=== PATIENT | female | born 1985 | race African-American/Black ===

== ENCOUNTER → 2017-02-03 11:25 | Outpatient (CLI) | payer MEDICAID | END | disposition home or self-care (01) | LOC: D.LDO 11:25 | DX: O36.5930 Maternal care for other known or suspected poor fetal growth, third trimester, not applicable or unspecified (principal); Z3A.35 35 weeks gestation of pregnancy ==

== ENCOUNTER → 2017-02-06 11:42 | Outpatient (CLI) | payer MEDICAID | END | disposition home or self-care (01) | LOC: D.LDO 11:42 | DX: O36.5930 Maternal care for other known or suspected poor fetal growth, third trimester, not applicable or unspecified (principal); Z3A.36 36 weeks gestation of pregnancy ==

== ENCOUNTER 2017-02-10 11:30 | Inpatient (IN) | payer MEDICAID ==
[~2017-02-10] VITALS: Ht 162.6 cm; Wt 65.8 kg
[2017-02-10] MEDS ORDERED: PRENATAL COMPLE1 TAB PO (14:44)
[2017-02-10] MEDS ORDERED: PROTONIX40 MG PO (14:45)
[2017-02-10] MEDS ORDERED: FLAGYL250 MG PO (14:46)
[2017-02-10 15:02] LABS: BASOPHILS 0.2 % (0-2); EOSINOPHILS 1.6 % (0-7); HEMATOCRIT 38.7 % (36.0-48.0); HEMOGLOBIN 13.2 g/dL (12-16); IMMATURE GRANULOCYTES 0.8 % (0-5); LYMPHOCYTES 22.7 % (15-50); MCH 34.5 pg (26.0-34.0); MCHC 34.1 g/dL (31.0-37.0); MEAN PLATELET VOLUME 11.2 fL (7.4-10.4); MONOCYTES 9.8 % (2-11); NEUTROPHILS 64.9 % (40-80); PLATELET COUNT 222 10x3/uL (130-400); RBC 3.83 10x6/uL (4.00-5.40); RDW 13.5 % (11.5-14.5); WBC 11.1 10x3/uL (4.8-10.8)
[2017-02-10 15:57] VITALS: BP 124/65; Ht 162.6 cm; Wt 65.8 kg
[2017-02-10 20:34] LABS: UDS - AMPHET NEGATIVE QUAL (NEGATIVE); UDS - BARB NEGATIVE QUAL (NEGATIVE); UDS - BENZO NEGATIVE QUAL (NEGATIVE); UDS - COCAINE NEGATIVE QUAL (NEGATIVE); UDS - METH NEGATIVE QUAL (NEGATIVE); UDS - OPIATE NEGATIVE QUAL (NEGATIVE); UDS - PCP NEGATIVE QUAL (NEGATIVE); UDS - THC POSITIVE QUAL (NEGATIVE)
[2017-02-11] VITALS (10 sets, daily range): BP systolic 123–139; BP diastolic 61–79
--- NOTE | 2017-02-11 20:14 | NUR ---
FUNDUS FIRM AT UBMILICUS K[facility] MINIMAL LOCIA
--- NOTE | 2017-02-11 20:19 | NUR ---
PT ARRIVES TO ROOM 1278 WITH Rosmery VILLALBA RN. PT RESTING IN BED IN SEMI-FOWLERS POSITION WITH EYES CLOSED IN NO ACUTE DISTRESS. PT AWAKENS EASILY WHEN SPOKEN TO. PITOCIN SET TO INFUSE VIA PUMP AT 125CC/HR TO EXISTING 18G IV IN RIGHT HAND, NO REDNESS OR EDEMA NOTED TO SITE. RN REMAINS AT PT BS TO PERFORM INTERVENTIONS AND FOR COLIN.
--- NOTE | 2017-02-11 20:29 | NUR ---
DEMEROL STRETCHER DRIER OPERATOR STARTED. SETTINGS REVIEWED
--- NOTE | 2017-02-11 20:32 | NUR ---
400ML CLEAR YELLOW URINE EMPTIED FROM SUAREZ
--- NOTE | 2017-02-11 20:36 | NUR ---
FABY CARE PERFORMED. FUNDUS FIRM AND ML @ U/-3. LOCHIA RUBRA SCANT. FABY PAD CHANGED. ICE PACK PLACED TO ABDOMEN.
--- NOTE | 2017-02-11 21:05 | NUR ---
PT POSITIONED TO RIGHT LATERAL POSITION FOR PT COMFORT. INSTRUCTIONS OF PERSONNEL CLERKS SUPERVISOR REVIEWED WITH PT AND FAMILY AT BS. PT VERBALIZED UNDERSTANDING.
--- NOTE | 2017-02-11 21:19 | NUR ---
COLIN COMPLETE. PT LETHARGIC BUT AWAKENS EASILY WHEN SPOKEN TO. ORIENTED TIMES 3. HR REGULAR. LUNGS CTAB. PT ABLE TO TAKE DEEP BREATHES ON OWN. ABDOMEN SOFT AND TENDER WITH PALPATION. BS HYPOACTIVE TIMES 4. FUNDUS FIRM AND ML @ U/-3. LOCHIA RUBRA SCANT. LOWER ABDOMINAL INCISION NOTED. STERI STRIPS IN PLACE. NO REDNESS, EDEMA, OR DRAINAGE NOTED TO SITE. PT DENIES PASSING GAS SINCE PRIMARY C/S. SUAREZ IN PLACE AND DRAINING CLEAR YELLOW URINE. OUTPUT WNL. SCD'S IN PLACE TO LOWER EXTREMITIES AND PUMPING. NS WITH 20 UNITS PITOCIN INFUSING VIA PUMP AT 125CC/HR AND DEMEROL HVAC/R SERVICE TECHNICIAN INFUSING TO EXISTING 18G IN RIGHT HAND, NO REDNESS OR EDEMA NOTED TO SITE. ICE PACK IN PLACE TO PERINIUM. PT DENIES ANY NEEDS AT THIS TIME. BED IN LOW POSITION, SIDE RAILS UP TIMES 2, CALL LIGHT AND PHONE IN REACH. FAMILY TIMES 1 REMAINS AT PT BS FOR SUPPORT AND ASSISTANCE. WILL CONT TO MONITOR PT STATUS.
--- NOTE | 2017-02-11 21:40 | NUR ---
RN CALLED TO PT BS. PT REPOSITIONED IN BED TO LEFT TILT FOR PT COMFORT. PT TOLERATING WATER PO. INSTRUCTIONS REVIEWED AGAIN WITH PT AND FAMILY REGARDING PER DIEM NURSE. PT DENIES ANY FURTHER NEEDS. WILL CONT TO MONITOR.
--- NOTE | 2017-02-11 22:55 | NUR ---
RN TO PT BS. PT RESTING IN BED IN LEFT TILT POSITION, WITH EYES CLOSED, IN NO ACUTE DISTRESS. RESPIRATIONS EVEN AND UNLABORED. PT AWAKENS EASILY WHEN SPOKEN TO. I&OS PERFORMED. VS WNL. FUNDUS FIRM AND ML @ U/-3. LOCHIA RUBRA SMALL. FABY CARE PERFORMED AND FABY PAD CHANGED. PT DENIES ANY NEEDS AT THIS TIME. BED IN LOW POSITION, SIDE RAILS UP TIMES 2, CALL LIGHT AND PHONE IN REACH. FAMILY TIMES 1 REMAINS AT PT BS FOR SUPPORT AND ASSISTANCE. WILL CONT TO MONITOR PT STATUS.
--- NOTE | 2017-02-11 23:05 | NUR ---
NURSERY RN AT PT BS WITH .
--- NOTE | 2017-02-11 23:53 | NUR ---
RN TO PT BS. PT RESTING IN BED IN SEMI-FOLWERS POSITION, WITH EYES CLOSED, IN NO ACUTE DISTRESS. PT AWAKENS EASILY WHEN SPOKEN TO. VS WNL. OUTPUT WNL. PT DENIES ANY NEEDS AT THIS TIME. BED IN LOW POSITION, SIDE RAILS UP TIMES 2, CALL LIGHT AND PHONE IN REACH. FAMILY AT PT BS TIMES 1 FOR SUPPORT AND ASSISTANCE. ICE PACK REFRESHED TO ABDOMEN. WILL CONT TO MONITOR PT STATUS.
[2017-02-12] VITALS (10 sets, daily range): BP systolic 118–132; BP diastolic 64–76
--- NOTE | 2017-02-12 00:10 | NUR ---
RN TO PT BS. PT REQUESTS BE BROUGHT TO ROOM. TRANSPORTED TO PT ROOM VIA OPEN CRIB PER PT REQUEST. ID BANDS VERIFIED TIMES 2. PT DENIES ANY FURTHER NEEDS.
--- NOTE | 2017-02-12 01:12 | NUR ---
RN TO PT BS. PT SITTING IN HIGH FOWLERS POSITION HOLDING INFANT. PT IN NO ACUTE DISTRESS. I&O'S WNL. VS WNL. PT DENIES ANY NEEDS AT THIS TIME. BED IN LOW POSITION, SIDE RAILS UP TIMES 2, CALL LIGHT AND PHONE IN REACH. FAMILY AT PT BS TIMES 2 FOR SUPPORT AND ASSISTANCE. REMAINS AT PT BS FOR COUPLET CARE. WILL CONT TO MONITOR PT STATUS.
--- NOTE | 2017-02-12 03:22 | NUR ---
RN TO PT BS. PT RESTING IN BED IN SEMI-FOWLERS POSITION, WITH EYES CLOSED, IN NO ACUTE DISTRESS. PT AWAKENS EASILY WHEN SPOKEN TO. VS WNL. I&O'S WNL. FABY CARE PERFORMED. BLUE CHUX AND FABY PAD CHANGED. PT DENIES ANY NEEDS AT THIS TIME. BED IN LOW POSITION, SIDE RAILS UP TIMES 2, CALL LIGHT AND PHONE IN REACH. FAMILY AT PT BS TIMES 1 FOR SUPPORT AND ASSISTANCE. WILL CONT TO MONITOR PT STATUS.
--- NOTE | 2017-02-12 05:06 | NUR ---
RN TO PT BS. PT RESTING IN BED IN SEMI-FOWLERS POSITION, WITH EYES CLOSED, IN NO ACUTE DISTRESS. RESPIRATIONS EVEN AND UNLABORED. BED IN LOW POSITION, SIDE RAILS UP TIMES 2, CALL LIGHT AND PHONE IN REACH. FAMILY AT PT BS TIMES 1 FOR SUPPORT AND ASSISTANCE. WILL CONT TO MONITOR PT STATUS.
[2017-02-12 05:54] LABS: HEMATOCRIT 36.5 % (36.0-48.0); HEMOGLOBIN 12.5 g/dL (12-16); MCH 33.6 pg (26.0-34.0); MCHC 34.2 g/dL (31.0-37.0); MCV 98.1 fL (80.0-100.0); MEAN PLATELET VOLUME 11.4 fL (7.4-10.4); RBC 3.72 10x6/uL (4.00-5.40); RDW 13.1 % (11.5-14.5); WBC 28.1 10x3/uL (4.8-10.8)
[2017-02-12 06:14] LABS: RAPID PLASMA REAGIN Non Reactive (Non Reactive)
--- NOTE | 2017-02-12 06:37 | NUR ---
RN TO PT BS. PT RESTING IN BED IN SEMI-FOWLERS POSITION, WITH EYES CLOSED, IN NO ACUTE DISTRESS. PT AWAKENS EASILY WHEN SPOKEN TO. I&O'S PERFORMED, WNL. FABY CARE PROVIDED, FUNDUS FIRM AND ML @ U/-3, LOCHIA RUBRA SMALL. FABY PAD AND BLUE PAD CHANGED. ICE PACK TO ABDOMEN REFRESHED. PT DENIES ANY NEEDS AT THIS TIME. BED IN LOW POSITION, SIDE RAILS UP TIMES 2, CALL LIGHT AND PHONE IN REACH. FAMILY REMAINS AT PT BS TIMES 1 FOR SUPPORT AND ASSISTANCE. WILL CONT TO MONITOR PT STATUS AND GIVE REPORT TO AM SHIFT.
--- NOTE | 2017-02-12 07:31 | OP ---
PATIENT NAME: KEVIN MIXON MEDICAL RECORD: [id number] :85 LOCATION:[id number] ADMISSION DATE:02/10/17 SURGEON: AMINAH DOWNING MD DATE OF OPERATION: 02/11/2017 PREOPERATIVE DIAGNOSIS: Failure to progress. POSTOPERATIVE DIAGNOSIS: Failure to progress. PROCEDURE: Primary low transverse section. ANESTHESIA: Epidural. SURGEON: Aminah Downing MD. FINDINGS: A 5 pound 6 ounce female infant in cephalic presentation with clear fluid, 9 and 9 Apgars. ESTIMATED BLOOD LOSS: 800 cc. COMPLICATIONS OF SURGERY: None. OPERATIVE NOTE: The patient was taken to the OR and after adequate epidural anesthesia, prepped and draped in the usual manner for abdominal procedures. A transverse incision was made in the lower abdomen and extended through subcutaneous tissue and fascia, dividing muscles in the midline in the Pfannenstiel manner. The peritoneum was then incised, avoiding the bladder and abdominal organs. A transverse incision was then made in the lower uterine segment and was delivered through the uteroabdominal incision without difficulty. was thoroughly suctioned, cord doubly clamped and ligated and the infant handed to the waiting nursery personnel. Placenta was removed manually. The uterus was closed in two layers, first layer with running interlocking #1 chromic suture, second layer an imbricating #1 chromic suture. Pelvis and abdomen were then copiously irrigated with lactated Ringer's solution and suctioned and hemostasis again confirmed. The fascial layer was closed in a running noninterlocking #1 PDS loop suture. The skin was reapproximated with a 2-0 plain gut subcuticular suture. Dermabond was applied, a Steri-Strip dressing applied and the patient went to the recovery area in good condition. TRANSINT:[id number] Voice Confirmation ID: [id number] DOCUMENT ID: [id number] AMINAH DOWNING MD at 0731 CC: [id number] DICTATION DATE: 02/11/171957 SALES MANAGEMENT INTERN: 02/12/17 0234 ADM IN [id number] [place] [address]
--- NOTE | 2017-02-12 07:40 | NUR ---
ASSUMED CARE OF THIS PATIENT. ALERT AND ORIENTED. TYPING ON CELL PHONE. SHIFT ASSESSMENT COMPLETED. U/2 FIRM RUBRA SMALL, CLEAN FABY-PADS X 2 ON, IV PATENT NS WITH 20 U PITOCIN INFUSING AT 125 ML/HR PER ALARIS PUMP. DEMEROL CANDY CUTTER MACHINE CONTROLLER IN REACH. PT C/O 05/11 ABDOMINAL CRAMPING. ENCOURAGED TO USE CANDY CUTTER MACHINE PRN. INSTRUCTED ON PURPOSE OF CRAMPING IN CONTROLLING BLEEDING. ALSO DISCUSSED THAT PAIN WILL IMPROVE. ANTICIPATED DC OF IV FLUIDS, SUAREZ, AMBULATIONS, SHOWER TODAY. WAITING ON MD ORDERS. SIDE RAILS UP X 2, CALL LIGHT IN REACH. FAMILY AT BEDSIDE. IN NURSERY.
--- NOTE | 2017-02-12 07:45 | NUR ---
DR DOWNING ON L&D VERBAL ORDERS RECEIVED.
--- NOTE | 2017-02-12 07:55 | NUR ---
IV FLUIDS AND VACUUM PAN OPERATOR DC'D. THREE PORTS FLUSHED WITH NS, CLAMPLED AND COVERED WITH ALCOHOL CAPS. SUAREZ DC'D WITH 275 ML IN BACK. INSTRUCTED PATIENT ON EXPECTATIONS TO BE ABLE TO VOID WITHIN 4 HOURS. TO CALL IF NEEDING TO VOID. VERBALIZED UNDERSTANDING. SIDE RAILS UP X 2. CALL LIGHT IN REACH.
--- NOTE | 2017-02-12 07:59 | NUR ---
DEMEROL 100 MG GIVEN PO FOR RELIEF OF CONTINUED 9/10 ABDOMINAL CRAMPING. SIDE RAILS UP X 2, CALL LIGHT IN REACH.
--- NOTE | 2017-02-12 09:25 | NUR ---
RETURNED TO BED AFTER ATTEMPTING TO VOID IN BATHROOM. WAS ASSISTED TO BR BY Edi CID RN AND FAMILY MEMBER. CURRENTLY PUMPING BREAST AND FALLING ASLEEP. ASKED PT REGARDING PAIN SCALE SAYS SHE IS NOW 7/10 CRAMPING. PLANS TO TAKE A NAP, SHOWER LATER AND THEN PUMP AGAIN. DISCUSSED PUMPING VS ACTUALLY IN EARLY POST PERIOD WITH PT AND FAMILY. INFANT IN CRIB IN ROOM. SIDE RAILS UP X 2, CALL LIGHT IN REACH. SCDS IN PLACE. TO CALL WHEN READY TO GET UP TO BATHROOM OR SHOWER.
--- NOTE | 2017-02-12 10:18 | NUR ---
SITTING IN SEMI FOWLERS POSITION HOLDING IN ARMS AND TYPING ON CELL PHONE. NO REQUESTS AT PRESENT. LIGHTS ON LOW. SIDE RAILS UP X 2 CALL LIGHT IN REACH. VISITOR SLEEPING ON COUCH.
--- NOTE | 2017-02-12 11:01 | NUR ---
SITTING UP IN BED. GETTING READY TO BREASTFEED INFANT. FAMILY MEMBER ASSISTING PATIENT AT THIS TIME. DENIES URGE TO VOID. INSTRUCTED WILL NEED TO TRY AGAIN SOON, AFTER BREAST FEEDING.
--- NOTE | 2017-02-12 11:45 | NUR ---
ASSISTED UP TO BATHROOM TO ATTEMPT TO VOID. TRIED WARM WATER AND RUNNING TAP. STATES "I DON'T FEEL LIKE I HAVE TO GO". WILL SHOWER AT THIS TIME.
--- NOTE | 2017-02-12 12:40 | NUR ---
COMPLETED SHOWER. ASSISTED WITH GETTING DRESSED. SITTING UP IN CHAIR FOR LUNCH. REQUESTED SALAD INSTEAD OF MEAL TRAY THAT WAS SERVED. INFANT IN NURSERY. VISITOR IN ROOM.
--- NOTE | 2017-02-12 12:49 | NUR ---
DEMEROL 100 MG GIVEN PO FOR RELIEF OF 8/10 CRAMPING. GEMINI CÁRDENAS. WAS UNABLE TO VOID IN SHOWER, STATES "I STILL DON'T FEEL LIKE I HAVE TO GO".
--- NOTE | 2017-02-12 13:10 | NUR ---
RETURNED FROM BATHROOM WITH HELP FROM VISITOR. VOIDED 850 ML OF URINE. NOW SITTING IN BED GETTING READY TO EAT LUNCH. SIDE RAILS UP X 2, CALL LIGHT IN REACH. IN NURSERY.
--- NOTE | 2017-02-12 13:31 | NUR ---
EATING LUNCH. SAYS HER PAIN IS NOW 6/10 "STARTING TO GET BETTER". NO REQUESTS AT THIS TIME. VISITOR IN ROOM.
--- NOTE | 2017-02-12 14:12 | NUR ---
SITTING UP IN BED WITH IN ARMS. C/O SALINE LOCK ITCHING AND "LOOKS LIKE BLOOD". SLIGHT BLOOD NOTED UNDER OP SITE. WILL DC AT THIS TIME DUE TO COMPLAINTS. PT INFORMED MAY HAVE TO BE RESTARTED IF INDICATED OR ORDERED. VERBALIZED UNDERSTANDING. INSTRUCTED THAT SHE WILL NEED TO AMBULATE IN [place] TWO TIMES TODAY. TO CALL WHEN READY TO WALK IN [place]. VERBALIZED UNDERSTANDING. CALL LIGHT IN REACH.
--- NOTE | 2017-02-12 16:10 | NUR ---
UP TO BR TO VOID. VOIDED 700 ML URINE. RUBRA SCANT. AMBULATED IN [place] AROUND ENTIRE L&D. TOLERATED WELL STATES "THIS IS EASIER THAN I THOUGHT IT WOULD BE." RETURNED TO ROOM AND BED. VISITOR IN ROOM WITH . REQUESTS SOMETHING FOR PAIN AT THIS TIME.
--- NOTE | 2017-02-12 16:11 | NUR ---
02/12/2017 15:55 CM: Case Management Case Management Referral Baby's Full Name: Agnes Snowden Mother's Name: Mery Mcclelland [phone] CM met with mother of baby. She reports she lives with a room mate and her room mates 2 children, ages & 11 @ [address] [facility]. She states this is her first child. She states she is unsure of who is baby's father - 1 of two men. She reports a college education. She did not attend any parenting classes, but states she rec'd care. At mi, she plans to return home with her room mate, but hopes to move to [place] with her mother in a month or two. She states her home is a safe environment with basic utilities including city water, heat, & air. She states she has a car seat for baby. She states she has applied for WIC and [facility] for baby. She hopes to breastfeed but will supplement with formula if needed. She states she has diapers, clothing, bottles, & crib for baby. She plans for baby to follow up with engraver seals, Dr. Kwong after discharge. CM discussed positive UDS with Mom. She reports smoking THC approximately 2 weeks prior to hospitalization. She states she was stressed out and unable to eat so she smoked it to see if it would help. CPS has been notified by nursing of positive screen per [employer]. CM will follow and assist with any discharge needs.
--- NOTE | 2017-02-12 16:25 | NUR ---
DEMEROL 50 MG GIVEN PO FOR RELIEF OF 7/10 INCISIONAL PAIN AND CRAMPING. REQUESTED "HALF DOSE". NO ADDITIONAL REQUESTS AT THIS TIME. INFANT IN ROOM. VISITOR IN ROOM. SIDE RAILS UP X 2, CALL LIGHT IN REACH.
--- NOTE | 2017-02-12 17:07 | NUR ---
SITTING UP IN BED . VISITOR AT BEDSIDE. SAYS HER PAIN IS BETTER, NOW 5/10. FEELING DROWSY. SIDE RAILS UP X 2, CALL LIGHT IN REACH. SAYS SHE WAS UP TO BATHROOM CAUSE SHE FELT LIKE SHE HAD TO HAVE A BM. HAS BEEN PASSING GAS. ENCOURAGED AMBULATION AND WARM FLUIDS TO PROMOTE HAVING A BM. VERBALIZED UNDERSTANDING.
--- NOTE | 2017-02-12 17:31 | NUR ---
HOLDING IN ARMS. U/2 FIRM MIDLINE. GEMINI CÁRDENAS. VISITOR IN ROOM. NO REQUESTS AT THIS TIME. SIDE RAILS UP X 2, CALL LIGHT IN REACH. TO CALL IF ANYTHING IS NEEDED.
--- NOTE | 2017-02-12 18:30 | NUR ---
WAS ASSISTED UP TO BATHROOM TO VOID. VOIDED 450 ML URINE. RETURNED TO BED WITH ASSISTANCE, FEELS DROWSY FOLLOWING PAIN MEDICATION. SIDE RAILS UP X2, CALL LIGHT IN REACH. IN NURSERY AT THIS TIME. TO CALL IF ANYTHING IS NEEDED. WILL NEED SCD'S WHEN READY TO SLEEP FOR THE NIGHT.
--- NOTE | 2017-02-12 20:30 | NUR ---
PT. UP TO BATHROOM AT PRESENT. LADY AT BEDSIDE HOLDING UNWRAPPED. STATES SHE IS TRYING TO WAKE HER UP TO BREASTFEED. INFORMED LADY THAT REALLY NEEDS TO STAY WRAPPED UP DUE TO LOW WEIGHT. INSTRUCTED HER ON OTHER TECHNIQUES THAT SHE MIGHT TRY SUCH RUBBING SOLES OF FEET BUT TO KEEP INFANT WRAPPED. LADY STATES, "HER MOTHER WAS THE SAME WAY". NBN STAFF INFORMED OF CONVERSATION AND FACT THAT ROOM TEMP. WAS COLD.
--- NOTE | 2017-02-12 20:35 | NUR ---
BACK FROM THE BATHROOM. RATES PAIN A 6 OF 10 ON PAIN SCALE. ABD. INCISION NOTED WITH STERI STRIPS WHICH ARE CLEAN AND DRY. SLIGHT INSPIRATORY WHEEZE WHICH CLEARS WITH COUGHING. DENIES ANY PAIN IN LEGS AND NO REDNESS NOR EDEMA NOTED. SCDS OFF AT PRSENT. ENCOURAGED TO COUGH AND DEEP BREATH. PT. GAVE RETURN DEMONSTRATION. BOWEL SOUNDS AUDIBLE AND PT. REPORTS PASSING FLATUS. BABY IN ROOM AWAITING .
--- NOTE | 2017-02-12 20:42 | NUR ---
DEMEROL 50 PO GIVEN ORDERED. LYING IN BED ON BACK WITH HOB AT 45 DEGREES.
--- NOTE | 2017-02-12 20:45 | NUR ---
NBN STAFF IN ROOM TO ASSIST PT. WITH GETTING TO LATCH.
--- NOTE | 2017-02-12 21:50 | NUR ---
INTO PT. ROOM AND SHE REPORTS THAT SHE HAS SOME CRAMPING UNDER INCISION. PT. POST . INFORMED OF REASON FOR CRAMPING DURING AND FOR SOME TIME POST . PT. STATES UNDERSTANDING. WARM BLANKET GIVEN TO PT. TO PLACE AGAINST LOWER ABD. PT'S AUNT IN ROOM WITH PT.
--- NOTE | 2017-02-12 23:05 | NUR ---
PT. LYING IN LT TILT. EYES CLOSED BUT LOOKS TOWARD DOOR THIS NURSE ENTERS ROOM. PT. REPORTS THAT SHE IS STILL HAVING ABD. DISCOMFORT. STATES SHE FEELS "LIKE A KNOT". ABD PALPATED AND ABD. SOFT BUT DISTENDED. EPPERSON PT. DESCRIBES IS BOWEL. EXPLAINED TO PT. THAT SHE HAS GAS. EXPLAINED THAT WALKING CAN HELP RELIEVE SOME OF THE DISCOMFORT AND ALSO PASSING GAS WHEN SHE FEELS THE URGE. PT. DECLINES THE OFFER TO AMBULATE AT THIS TIME. PT'S AUNT SLEEPING ON THE SOFA.
--- NOTE | 2017-02-12 23:11 | NUR ---
PT. INFORMED THAT MYLICON WAS ORDERED THAT COULD HELP WITH THE GAS. VITAL SIGNS OBTAINED. MYLICON ADMINISTERED ORDERED. INFORMED PT. THAT IF SHE DOES NOT GET RELIEF IN THE NEXT 30 - 45 MINUTES THIS NURSE WOULD BE HAPPY TO WALK WITH HER IN THE HALLWAY. PT. STATES UNDERSTANDING. OFFERED TO REPLACE SCDS BUT PT. DECLINED STATING THAT SHE DID NOT WANT THEM ON SINCE SHE WAS GETTING UP OFTEN TO THE BATHROOM. CALL LIGHT WITHIN REACH AND SIDE RAILS UP X 2.
--- NOTE | 2017-02-12 23:32 | NUR ---
PT. WALKED LENGTH OF HALLWAY AND BACK TO ROOM . USED WHEELCHAIR TO WALK BEHIND. THIS NURSE WALKED WITH PT.ALTHOUGH NO ASSISTANCE NEEDED. PT. INTO ROOM AND TO BATHROOM STATING THAT SHE FEELS SHE CAN PASS GAS. ENCOURAGED PT. TO WALK 3-4 TIMES TOMORROW. STATES SHE ALSO WALKED THIS AM.
--- NOTE | 2017-02-13 00:35 | NUR ---
PT. SITTING IN CHAIR AT BEDSIDE. STATES SHE FEELS BETTER AND ABD. IS LESS TENSE. DENIES ANY NEEDS AT THIS TIME. LOOKING ON PHONE AT THIS TIME.
--- NOTE | 2017-02-13 01:57 | NUR ---
LYING IN LT TILT WITH EYES CLOSED. RESPIRATIONS REGULAR.
[2017-02-13 03:36] VITALS: BP 137/77
--- NOTE | 2017-02-13 03:36 | NUR ---
SITTING ON SIDE OF BED. VITAL SIGNS OBTAINED. RATES PAIN A 7 OF 10 ON PAIN SCALE THAT IS CRAMPING AND INCISIONAL. PT UP TO BATHROOM.
--- NOTE | 2017-02-13 04:40 | NUR ---
PT. LYING ON BACK WITH HOB 30 DEGREE ON IPHONE. DENIES ANY PAIN AT THIS TIME.
--- NOTE | 2017-02-13 06:00 | NUR ---
LYING ON LT SIDE WITH HOB AT 30 DEGREES. RESPIRATIONS REGULAR.
--- NOTE | 2017-02-13 07:25 | NUR ---
THIS RN TO ROOM FOR SHIFT ASSESSMENT. PT LYING IN BED, SUPINE, HOB 60DEGREES. PT AAOx3. PT RATING PAIN 7/10 AT INCISION SITE, ALSO C/O GAS PAIN. SHIFT ASSESSMENT COMPLETE, VSS, SEE FLOWSHEET FOR DOC. BS HYPOACTIVE x4Q, ABD DISTENDED BUT SOFT. LOW TRANSVERSE INCISION WITH STERI STRIPS C/D/I. INCISION CARE DISCUSSED WITH PT, UNDERSTANDING VERBALIZED. PT DENIES CONCERNS WITH BLEEDING. HEAVY LOCHIA AND WHAT TO REPORT DISCUSSED WITH PT, UNDERSTANDING VERBALIZED. PT STATES SHE HAS PASSED GAS ONCE, DENIES HAVING BM SINCE SURGERY. PT ADMIN PRN DEMEROL AND SIMETHICONE ORDERED, SEE EMAR FOR DOC. PT DENIES FURTHER NEEDS. BREAKFAST TRAY SET UP FOR PT. SRUx2, CL IN REACH. WILL CONT TO MONITOR.
[2017-02-13 07:30] VITALS: BP 119/83
--- NOTE | 2017-02-13 07:55 | NUR ---
DR DOWNING ROUNDING ON PT, GIVES ORDER TO ADMIN DULCOLAX SUPPOSITORY NOW AND PT MAY D/C TO HOME WHEN SHE PASSES GAS. WILL PROCEED ORDERED.
--- NOTE | 2017-02-13 08:39 | NUR ---
PT ADMIN DULCOLAX SUPPOSITORY ORDERED. PT INSTRUCTED ON RESTING IN BED FOR APPROX 15MIN BEFORE AMBULATING. PT ALSO ENCOURAGED TO DRINK WARM LIQUIDS. PT REQUESTS HOT CHOCOLATE. WILL PROVIDE REQUESTED.
--- NOTE | 2017-02-13 09:12 | NUR ---
PT LYING IN BED ON RIGHT SIDE, VISITING WITH FAMILY. PT DENIES ANY PAIN AT INCISION AT THIS TIME, STATES IS STILL HAVING SOME GAS PAIN. PT PROVIDED WITH HOT CHOCOLATE AND ENCOURAGED TO DRINK AND AMBULATE. UNDERSTANDING VERBALIZED. SRUx2, CL IN REACH.
--- NOTE | 2017-02-13 11:00 | NUR ---
THIS RN TO ROOM FOR PT CHECK. PT REPORTS PASSING "A LITTLE BIT OF GAS" AND STATES SHE HAS BEEN DRINKING WARM LIQUIDS. WILL PROCEED WITH DISCHARGE ORDERED.
--- NOTE | 2017-02-13 12:45 | NUR ---
PT REPORTS PASSING "A LOT OF GAS" AND ALSO HAVING A BM. DISCUSSED D/C TO HOME WITH PT, STATES SHE IS READY TO GO HOME. PT DENIES FURTHER NEEDS. SRUx2, CL IN REACH.
--- NOTE | 2017-02-13 13:16 | NUR ---
PT C/O PAIN AND REQUESTING DEMEROL TAB. ADMIN ORDERED, SEE EMAR FOR DOC.
--- NOTE | 2017-02-13 14:59 | NUR ---
PT C/O "NO RELIEF" FROM PREVIOUS DEMEROL ADMIN OF 50MG PO. PT RATING PAIN 7/10 AT INCISION, WORSENING WITH MOVEMENT. PT STATES "I WISH I WOULD HAVE JUST TAKEN THE 100MG DOSE. CAN I HAVE THE OTHER 50 NOW?" PT ADMIN PRN 50MG DEMEROL TAB, SEE EMAR FOR DOC.
--- NOTE | 2017-02-13 15:15 | NUR ---
PT GIVEN DISCHARGE INSTRUCTIONS WELL WRITTEN PRESCRIPTION FOR PAIN CONTROL POST D/C TO HOME. PT VERBALIZED UNDERSTANDING AND DENIED QUESTIONS. PT SIGNS CHART COPIES OF INSTRUCTIONS.
--- NOTE | 2017-02-13 15:25 | NUR ---
PT TAKEN TO PRIVATE VEHICLE VIA W/C FOR D/C TO HOME. PT'S MOTHER TO DRIVE HER HOME. INSTRUCTIONS IN HAND.
== END 2017-02-13 15:25 | disposition home or self-care (01) | DRG 765 ==
LOC: D.LDO 11:30 → D.LD 14:31
PROVIDERS: Obstetrics & Gynecology; ADMIT Obstetrics & Gynecology
PROC: 10907ZC Drainage of Amniotic Fluid, Therapeutic from Products of Conception, Via Natural or Artificial Opening (ICD-10-PCS; 2017-02-11)
PROC: 10D00Z1 Extraction of Products of Conception, Low, Open Approach (ICD-10-PCS; principal; 2017-02-11 19:12)
DX: O36.5930 Maternal care for other known or suspected poor fetal growth, third trimester, not applicable or unspecified (principal); O41.03X0 Oligohydramnios, third trimester, not applicable or unspecified; O99.324 Drug use complicating childbirth; Z3A.36 36 weeks gestation of pregnancy; Z37.0 Single live birth; O66.40 Failed trial of labor, unspecified; O99.334 Smoking (tobacco) complicating childbirth; F12.90 Cannabis use, unspecified, uncomplicated

== ENCOUNTER 2018-11-04 19:48 | Emergency (ER) | payer SELFPAY ==
[~2018-11-04] VITALS: Ht 162.6 cm; Wt 55.9 kg
[~2018-11-04 19:48] MED LIST: FLAGYL250 MG PO; PRENATAL COMPLE1 TAB PO; PROTONIX40 MG PO
[2018-11-04 20:11] VITALS: Ht 162.6 cm; Wt 55.9 kg
[2018-11-04 21:19] LABS: BASOPHILS 0.2 % (0-2); EOSINOPHILS 1.4 % (0-7); HEMATOCRIT 37.7 % (36.0-48.0); HEMOGLOBIN 13.2 g/dL (12-16); IMMATURE GRANULOCYTES 0.1 % (0-5); MCH 33.3 pg (26.0-34.0); MCV 95.2 fL (80.0-100.0); MEAN PLATELET VOLUME 10.8 fL (7.4-10.4); MONOCYTES 7.8 % (2-11); NEUTROPHILS 54.5 % (40-80); PLATELET COUNT 213 10x3/uL (130-400); RBC 3.96 10x6/uL (4.00-5.40); RDW 12.1 % (11.5-14.5); WBC 8.1 10x3/uL (4.8-10.8)
[2018-11-04 21:45] LABS: ALBUMIN 3.4 g/dL (3.4-5.0); ALKALINE PHOSPHATASE 47 U/L (46-116); ALT (SGPT) 11 U/L (10-68); BILIRUBIN - TOTAL 0.45 mg/dL (0.2-1.3); CALC OSMOLALITY 270 mosm/kg (275-300); CALCIUM 8.4 mg/dL (8.5-10.1); CARBON DIOXIDE 20.2 mmol/L (21.0-32.0); CHLORIDE - SERUM 102 mmol/L (98-107); CREATININE - SERUM 0.6 mg/dL (0.6-1.3); GLUCOSE 85 mg/dL (74-106); POTASSIUM - SERUM 3.2 mmol/L (3.5-5.1); PROTEIN - SERUM 7.3 g/dL (6.4-8.2); SODIUM 137 mmol/L (136-145); TROPONIN-I < 0.017 ng/mL (0.000-0.060); UREA NITROGEN 7 mg/dL (7-18); eGFR NON AFRICAN AMERICAN > 90 mL/min (90-120)
[2018-11-04 22:18] VITALS: BP 114/78
== END 2018-11-04 22:15 | disposition home or self-care (01) ==
LOC: D.ER 19:48
PROVIDERS: Family Medicine
DX: R07.89 Other chest pain (principal)